=== PATIENT | male | born 1970 | race Caucasian/White ===

== ENCOUNTER → 2016-09-30 | Outpatient (CLI) | payer OTHER ==
[~2016-09-30] MED LIST: NORCO 325 MG-51 TAB PO; PRINZIDE 12.5 M1 TA1 PO; VYVANSE40 MG PO
== END ==
LOC: BHSO 14:11
DX: F41.1 Generalized anxiety disorder (principal)

== ENCOUNTER → 2016-11-10 | Outpatient (CLI) | payer OTHER | LOC: BHSO 14:41 | DX: F41.1 Generalized anxiety disorder (principal) ==

== ENCOUNTER → 2016-12-29 | Outpatient (CLI) | payer OTHER | LOC: BHSO 15:39 | DX: F90.0 Attention-deficit hyperactivity disorder, predominantly inattentive type (principal) ==

== ENCOUNTER → 2017-01-11 | Outpatient (CLI) | payer OTHER | LOC: BHSO 13:53 | DX: F41.1 Generalized anxiety disorder (principal) ==

== ENCOUNTER → 2017-01-18 | Outpatient (CLI) | payer OTHER | LOC: BHSO 14:55 | DX: F41.1 Generalized anxiety disorder (principal) ==

== ENCOUNTER → 2017-01-20 | Outpatient (CLI) | payer OTHER | LOC: BHSO 13:35 | DX: F41.1 Generalized anxiety disorder (principal) ==

== ENCOUNTER → 2017-02-01 | Outpatient (CLI) | payer OTHER | LOC: BHSO 08:39 | DX: F41.1 Generalized anxiety disorder (principal) ==

== ENCOUNTER → 2017-02-15 | Outpatient (CLI) | payer OTHER | LOC: BHSO 14:00 | DX: F41.1 Generalized anxiety disorder (principal) ==

== ENCOUNTER → 2017-02-23 | Outpatient (CLI) | payer OTHER | LOC: BHSO 14:23 | DX: F41.1 Generalized anxiety disorder (principal) ==

== ENCOUNTER → 2017-03-07 | Outpatient (CLI) | payer OTHER | LOC: BHSO 15:18 | DX: F41.0 Panic disorder [episodic paroxysmal anxiety] (principal) ==

== ENCOUNTER → 2017-03-08 | Outpatient (CLI) | payer OTHER | LOC: BHSO 14:07 | DX: F41.1 Generalized anxiety disorder (principal) ==

== ENCOUNTER → 2017-05-09 | Outpatient (CLI) | payer OTHER | LOC: BHSO 15:00 | DX: F90.0 Attention-deficit hyperactivity disorder, predominantly inattentive type (principal) ==

== ENCOUNTER → 2017-06-07 | Outpatient (CLI) | payer OTHER | LOC: BHSO 14:35 | DX: F31.81 Bipolar II disorder (principal) ==

== ENCOUNTER → 2017-11-23 | Outpatient (CLI) | payer SELFPAY | LOC: BHSO 15:33 | DX: F41.1 Generalized anxiety disorder (principal) | CPT/HCPCS: G0463 ==

== ENCOUNTER → 2018-02-22 | Outpatient (CLI) | payer SELFPAY | LOC: BHSO 15:53 | DX: F90.0 Attention-deficit hyperactivity disorder, predominantly inattentive type (principal) | CPT/HCPCS: G0463 ==

== ENCOUNTER → 2018-09-07 | Outpatient (CLI) | payer BC | LOC: BHSO 14:57 | DX: F90.0 Attention-deficit hyperactivity disorder, predominantly inattentive type (principal) | CPT/HCPCS: G0463 ==

== ENCOUNTER → 2019-05-03 | Outpatient (CLI) | payer SELFPAY | LOC: BHSO 11:00 | DX: F90.0 Attention-deficit hyperactivity disorder, predominantly inattentive type (principal) | CPT/HCPCS: G0463 ==

== ENCOUNTER → 2022-02-08 | Outpatient (CLI) | payer BC ==
[~2022-02-08] VITALS: Ht 177.8 cm; Wt 85.9 kg
[~2022-02-08] MED LIST changes: +FLEXERIL 1010 MG/TAB PO; +TOPROL XL100 MG PO
[2022-02-08 13:31] VITALS: BP 153/88; PULSE 78; TEMP 98.2
[2022-02-08 14:15] VITALS: BP 144/89; PULSE 74
== END ==
LOC: COL.RAD 12:54
DX: M51.06 Intervertebral disc disorders with myelopathy, lumbar region (principal)
CPT/HCPCS: J3301

== ENCOUNTER → 2022-03-11 | Outpatient (CLI) | payer BC ==
[~2022-03-11] VITALS: Ht 177.8 cm; Wt 86.3 kg
[2022-03-11 07:43] VITALS: BP 158/85; PULSE 64; TEMP 98
[2022-03-11 08:22] VITALS: BP 155/87; PULSE 68
== END ==
LOC: COL.RAD 07:00
DX: M51.06 Intervertebral disc disorders with myelopathy, lumbar region (principal)
CPT/HCPCS: J3301